=== PATIENT | female | born 1960 | race Caucasian/White ===

== ENCOUNTER → 2017-04-04 | Outpatient (CLI) | payer BC ==
[~2017-04-04] MED LIST: ASPI-496 PO; ATOR10TA9 PO; BENA10TA2 PO; ERGO500017 PO; FENO160T PO; PROG100C16 PO
[2017-04-04 09:04] LABS: BASOPHILS # (AUTO) 0.03 x10^3/uL (0-0.1); BASOPHILS % (AUTO) 0 % (0-1); EOSINOPHILS # (AUTO) 0.14 x10^3/uL (0-0.4); EOSINOPHILS % (AUTO) 2 % (1-7); LYMPHOCYTES # (AUTO) 2.56 x10^3/uL (1-3.4); LYMPHOCYTES % (AUTO) 34 % (22-44); MD NO; MEAN CORPUSCULAR HEMOGLOBIN 32.3 pg (27.0-34.8); MEAN CORPUSCULAR HGB CONC 33.9 g/dL (32.4-35.8); MEAN CORPUSCULAR VOLUME 95.3 fL (80-100); MEAN PLATELET VOLUME 9.1 fL (7.4-10.4); MONOCYTES # (AUTO) 0.62 x10^3/uL (0.2-0.8); MONOCYTES % (AUTO) 8 % (2-9); NEUTROPHILS % (AUTO) 55 % (42-75); PLATELET COUNT 256 x10^3/uL (130-400); RED BLOOD COUNT 4.06 x10^6/uL (3.82-5.3); RED CELL DISTRIBUTION WIDTH 13.4 % (9.6-15.2)
[2017-04-04 09:11] LABS: ALANINE AMINOTRANSFERASE 31 U/L (12-78); ALBUMIN 3.9 g/dL (3.4-5.0); ANION GAP 6 mmol/L (5-15); CALCIUM 9.2 mg/dL (8.5-10.1); CHLORIDE 107 mmol/L (98-107); CREATININE 0.78 mg/dL (0.55-1.02)
[2017-04-04 09:13] LABS: ALKALINE PHOSPHATASE 49 U/L (45-117); BILIRUBIN,TOTAL 0.3 mg/dL (0.2-1.0); TOTAL PROTEIN 7.2 g/dL (6.4-8.2)
== END ==
LOC: STAR 07:54
PROVIDERS: ATTEND Surgery
DX: Z01.818 Encounter for other preprocedural examination (principal)
CPT/HCPCS: 36415; 71046; 80053; 85025; 93005

== ENCOUNTER 2017-04-14 07:34 | Inpatient (IN) | payer BC ==
[~2017-04-14] VITALS: Ht 177.8 cm; Wt 101.7 kg
[~2017-04-14 07:34] MED LIST changes: +INDOCYANINE GREEN 25 MG VIAL ONE
[2017-04-14 08:31] VITALS: BP 115/78
[2017-04-14] MEDS ORDERED: LACTATED RINGERS 1,000 ML IV SCH (08:40)
[2017-04-14] MEDS ORDERED: MIDAZOLAM 1 MG/ML, 2ML ONE (08:40)
[2017-04-14] MEDS ORDERED: FENTANYL PF 250 MCG/5ML ONE (08:41)
[2017-04-14] MEDS ORDERED: ROCURONIUM 10 MG/ML,10ML ONE (08:42)
[2017-04-14] MEDS ORDERED: NEOSTIGMINE 1 MG/ML, 10ML ONE (08:42)
[2017-04-14] MEDS ORDERED: CEFAZOLIN 1,000 MG ONE (08:42)
[2017-04-14] MEDS ORDERED: GLYCOPYRROLATE 0.2MG/1ML, 5ML ONE (08:42)
[2017-04-14] MEDS ORDERED: SUCCINYLCHOLINE 20 MG/ML, 10ML ONE (08:42)
[2017-04-14] MEDS ORDERED: ONDANSETRON 2MG/ML, 2ML ONE (08:42)
[2017-04-14] MEDS ORDERED: BUPIVACAINE/PF 0.25% ONE ×2 (08:42)
[2017-04-14] MEDS ORDERED: DEXAMETHASONE 4 MG/ML, 1ML ONE (08:42)
[2017-04-14] MEDS ORDERED: PROPOFOL 10 MG/ML, 20ML ONE (08:42)
[2017-04-14] MEDS ORDERED: LIDOCAINE 1%, 2ML ONE (08:44)
[2017-04-14] MEDS ORDERED: PHENYLEPHRINE 10 MG/ML ONE ×2 (08:56)
[2017-04-14] MEDS ORDERED: LIDOCAINE 1%, 2ML SQ PRN (09:00)
[2017-04-14] MEDS ORDERED: MEPERIDINE/PF 25MG/0.5ML IVPush PRN (11:00)
[2017-04-14] MEDS ORDERED: HYDROcodone/APAP 7.5-325MG/15ML UDC PO PRN (11:00)
[2017-04-14] MEDS ORDERED: hydrALAzine 20 MG/ML, 1ML IV PRN (11:00)
[2017-04-14] MEDS ORDERED: ACETAMINOPHEN 325 MG TABLET PO PRN (11:00)
[2017-04-14] MEDS ORDERED: LABETALOL 5MG/ML, 20ML IV PRN (11:00)
[2017-04-14] MEDS ORDERED: PROMETHAZINE 25 MG/ML, 1ML IV PRN (11:00)
[2017-04-14] MEDS ORDERED: OXYcodone 5 MG/5 ML ORAL.SOL UDC PO PRN (11:00)
[2017-04-14] MEDS ORDERED: ONDANSETRON 2MG/ML, 2ML IVPush PRN (11:00)
[2017-04-14] MEDS ORDERED: FENTANYL PF 100 MCG/2ML IV PRN (11:00)
[2017-04-14] MEDS ORDERED: HYDROmorphone 2 MG/ML, 1ML ONE ×2 (11:08→12:38)
[2017-04-14] MEDS ORDERED: OXYcodone 5 MG/5 ML ORAL.SOL UDC ONE (12:38)
[2017-04-14] MEDS ORDERED: ACETAMINOPHEN 325 MG TABLET ONE (12:38)
[2017-04-14] MEDS ORDERED: ACETAMINOPHEN 650 MG/20.3 ML UDC ONE (12:38)
[2017-04-14] MEDS: HYDROmorphone 1 MG/ML, 1ML IV PRN ×3 (12:47→13:34)
[2017-04-14 14:20] VITALS: BP 100/62
[2017-04-14] MEDS ORDERED: LORazepam 1MG TABLET PO PRN (15:00)
[2017-04-14] MEDS ORDERED: HALOPERIDOL 5 MG/ML IVPush PRN (15:00)
[2017-04-14] MEDS ORDERED: LORazepam 2 MG/ML, 1ML IVPush PRN (15:00)
[2017-04-14] MEDS ORDERED: ONDANSETRON 2MG/ML, 2ML IV PRN (15:00)
[2017-04-14] MEDS ORDERED: CALCIUM CARBONATE 500 MG TAB.CHEW PO PRN (15:00)
[2017-04-14] MEDS ORDERED: DEXAMETHASONE 4 MG/ML, 1ML IVPush PRN (15:00)
[2017-04-14] MEDS ORDERED: HYDROmorphone 1 MG/ML, 1ML IVPush PRN (15:00)
[2017-04-14] MEDS ORDERED: DIPHENHYDRAMINE 25 MG CAPSULE PO PRN (15:00)
[2017-04-14] MEDS ORDERED: SCOPOLAMINE PATCH, 1.5MG PATCH.TD72 TD PRN (15:00)
[2017-04-14] MEDS ORDERED: DIPHENHYDRAMINE 50 MG/ML, 1ML IVPush PRN (15:00)
[2017-04-14] MEDS ORDERED: ENOXAPARIN 40 MG/0.4 ML SQ SCH (15:00)
[2017-04-14] MEDS: OXYcodone IR 5MG TABLET PO PRN ×3 (15:52→23:00)
[2017-04-14] MEDS: ACETAMINOPHEN 500 MG TABLET PO SCH ×2 (15:52→23:00)
[2017-04-14] MEDS: IBUPROFEN 800 MG TABLET PO SCH ×2 (15:53→23:01)
[2017-04-14] MEDS: D5%-0.45NACL+KCL 20MEQ 1,000 ML IV SCH (16:37)
[2017-04-14 18:43] VITALS: BP 128/74
[2017-04-14] MEDS: ATORVASTATIN 10 MG TABLET PO SCH (23:00)
[2017-04-15 01:34] VITALS: BP 132/84
[2017-04-15] MEDS: OXYcodone IR 5MG TABLET PO PRN ×6 (02:15→19:53)
[2017-04-15 05:20] LABS: BASOPHILS # (AUTO) 0.03 x10^3/uL (0-0.1); BASOPHILS % (AUTO) 0 % (0-1); EOSINOPHILS # (AUTO) 0.01 x10^3/uL (0-0.4); EOSINOPHILS % (AUTO) 0 % (1-7); LYMPHOCYTES # (AUTO) 1.05 x10^3/uL (1-3.4); LYMPHOCYTES % (AUTO) 11 % (22-44); MD NO; MEAN CORPUSCULAR HEMOGLOBIN 33.4 pg (27.0-34.8); MEAN CORPUSCULAR HGB CONC 34.6 g/dL (32.4-35.8); MEAN CORPUSCULAR VOLUME 96.6 fL (80-100); MEAN PLATELET VOLUME 9.4 fL (7.4-10.4); MONOCYTES # (AUTO) 0.85 x10^3/uL (0.2-0.8); MONOCYTES % (AUTO) 9 % (2-9); NEUTROPHILS # (AUTO) 7.36 x10^3/uL (1.8-6.8); NEUTROPHILS % (AUTO) 79 % (42-75); PLATELET COUNT 226 x10^3/uL (130-400); RED BLOOD COUNT 3.65 x10^6/uL (3.82-5.3); RED CELL DISTRIBUTION WIDTH 13.2 % (9.6-15.2)
[2017-04-15] MEDS: ACETAMINOPHEN 500 MG TABLET PO SCH ×3 (05:21→18:13)
[2017-04-15] MEDS: ENOXAPARIN 40 MG/0.4 ML SQ SCH (05:22)
[2017-04-15 05:31] LABS: ANION GAP 7 mmol/L (5-15); CALCIUM 8.7 mg/dL (8.5-10.1); CHLORIDE 105 mmol/L (98-107); CREATININE 0.99 mg/dL (0.55-1.02)
[2017-04-15 06:40] VITALS: BP 121/74
[2017-04-15] MEDS: PROGESTERONE 100 MG CAPSULE PO SCH (08:47)
[2017-04-15] MEDS: IBUPROFEN 800 MG TABLET PO SCH ×3 (08:47→21:00)
[2017-04-15] MEDS: FENOFIBRATE 145 MG TABLET PO SCH (08:47)
[2017-04-15] MEDS: D5%-0.45NACL+KCL 20MEQ 1,000 ML IV SCH (11:00)
[2017-04-15 14:00] VITALS: BP 133/70
[2017-04-15 19:03] VITALS: BP 128/79
[2017-04-15] MEDS: ATORVASTATIN 10 MG TABLET PO SCH (19:53)
[2017-04-16 01:33] VITALS: BP 126/77
[2017-04-16 05:37] LABS: CHLORIDE 109 mmol/L (98-107)
[2017-04-16 05:42] LABS: BASOPHILS # (AUTO) 0.05 x10^3/uL (0-0.1); BASOPHILS % (AUTO) 1 % (0-1); EOSINOPHILS # (AUTO) 0.21 x10^3/uL (0-0.4); EOSINOPHILS % (AUTO) 3 % (1-7); LYMPHOCYTES # (AUTO) 2.27 x10^3/uL (1-3.4); LYMPHOCYTES % (AUTO) 31 % (22-44); MD NO; MEAN CORPUSCULAR HEMOGLOBIN 32.9 pg (27.0-34.8); MEAN CORPUSCULAR HGB CONC 34.1 g/dL (32.4-35.8); MEAN CORPUSCULAR VOLUME 96.7 fL (80-100); MEAN PLATELET VOLUME 9.7 fL (7.4-10.4); MONOCYTES # (AUTO) 0.76 x10^3/uL (0.2-0.8); MONOCYTES % (AUTO) 10 % (2-9); NEUTROPHILS # (AUTO) 4.12 x10^3/uL (1.8-6.8); NEUTROPHILS % (AUTO) 56 % (42-75); PLATELET COUNT 192 x10^3/uL (130-400); RED BLOOD COUNT 3.56 x10^6/uL (3.82-5.3); RED CELL DISTRIBUTION WIDTH 13.2 % (9.6-15.2)
[2017-04-16 05:45] LABS: ANION GAP 5 mmol/L (5-15); CALCIUM 8.6 mg/dL (8.5-10.1); CREATININE 0.75 mg/dL (0.55-1.02)
[2017-04-16] MEDS: ACETAMINOPHEN 500 MG TABLET PO SCH ×3 (06:45→12:27)
[2017-04-16] MEDS: OXYcodone IR 5MG TABLET PO PRN (06:46)
[2017-04-16] MEDS: ENOXAPARIN 40 MG/0.4 ML SQ SCH (06:46)
[2017-04-16] MEDS: D5%-0.45NACL+KCL 20MEQ 1,000 ML IV SCH (06:47)
[2017-04-16 07:25] VITALS: BP 138/81
[2017-04-16] MEDS: PROGESTERONE 100 MG CAPSULE PO SCH (08:44)
[2017-04-16] MEDS: FENOFIBRATE 145 MG TABLET PO SCH (08:44)
[2017-04-16] MEDS: IBUPROFEN 800 MG TABLET PO SCH (08:44)
[2017-04-16] MEDS ORDERED: OXYC-302 PO (11:38)
[2017-04-16] MEDS ORDERED: PNEUMOCOCCAL 23 VACCINE IM-VACC ONE (12:00)
[2017-04-16 12:24] VITALS: BP 135/76
== END 2017-04-16 12:30 | disposition home or self-care (01) | DRG 331 ==
LOC: ORIP 07:34 → 4NOR 14:03
PROVIDERS: ADMIT Surgery; ATTEND Surgery
PROC: 0DBN4ZZ Excision of Sigmoid Colon, Percutaneous Endoscopic Approach (ICD-10-PCS; 2017-04-14)
PROC: 04LB4ZZ Occlusion of Inferior Mesenteric Artery, Percutaneous Endoscopic Approach (ICD-10-PCS; 2017-04-14)
PROC: 8E0W4CZ Robotic Assisted Procedure of Trunk Region, Percutaneous Endoscopic Approach (ICD-10-PCS; 2017-04-14)
PROC: 07BB4ZZ Excision of Mesenteric Lymphatic, Percutaneous Endoscopic Approach (ICD-10-PCS; principal; 2017-04-14 10:30)
DX: K57.92 Diverticulitis of intestine, part unspecified, without perforation or abscess without bleeding (principal); E78.5 Hyperlipidemia, unspecified; I10 Essential (primary) hypertension
CPT/HCPCS: 36415; 80048; 85025; 86850; 86900; 88305; 88307; 93005; J0690; J1100; J1170; J1650; J2250; J2405; J2704; J2710; J3010; J3490; J0330; J2370; J3480; J7120